=== PATIENT | male | born 1950 | race Caucasian/White ===

== ENCOUNTER → 2022-08-18 09:41 | Outpatient (CLI) | payer OTHER, SELFPAY ==
[2022-08-18 20:03] LABS: Add Manual Diff / Slide Review NO; Basophils Absolute Auto 0 /uL (0-100); Basophils Percent Auto 0.6 % (0-2); Eosinophils Absolute Auto 200 /uL (0-450); Eosinophils Percent Auto 4.5 % (2-4); Hematocrit 46.9 % (41-53); Hemoglobin 15.7 g/dL (13.5-17.5); Lymphocytes Absolute Auto 1200 /uL (1100-4500); Lymphocytes Percent Auto 27.7 % (25-40); Mean Corpuscular HGB Conc 33.5 % (30-36); Mean Corpuscular Hemoglobin 29.5 PG (26-34); Monocytes Absolute Auto 300 /uL (0-900); Neutrophils Absolute Auto 2600 /uL (1500-7000); Neutrophils Percent Auto 60.2 % (50-75); Platelet Count 176 X10^3/uL (150-400); Red Blood Cell Count 5.33 X10^6/uL (4.5-5.9); Red Cell Distribution Width 14.1 % (11.6-14.8); White Blood Cell Count 4.4 X10^3/uL (4.5-11.0)
[2022-08-18 20:10] LABS: BUN Creatinine Ratio 23.5 (6-22); Blood Urea Nitrogen 20 mg/dL (9-20); Carbon Dioxide 28 mmol/L (22-32); Chloride 104 mmol/L (98-107); Cholesterol 204 mg/dL (140-199); Estimated Glomerular Filt Rate > 60 mL/min (>60); Glucose 100 mg/dL (80-110); HDL Cholesterol 46 mg/dL (40-60); HEMOLYSIS < 15 (0-50); LDL Cholesterol Calculated 140 mg/dL (<100); Potassium 4.5 mmol/L (3.4-5.1); Sodium 137 mmol/L (137-145); Triglycerides 92 mg/dL (35-150)
[2022-08-18 20:38] LABS: Prostate Specific Antigen Scrn 2.14 ng/mL (0.1-4.0)
[2022-08-19 22:10] LABS: x Labcorp Estim. Avg Glu (eAG) 126 mg/dL (.)
[2022-08-20 08:13] LABS: Varicella IgG Antibody 362 index (Immune >165)
== END ==
PROVIDERS: PCP Family Medicine; Visit Provider Family Medicine
DX: E78.2 Mixed hyperlipidemia (principal); Z13.1 Encounter for screening for diabetes mellitus; Z13.220 Encounter for screening for lipoid disorders; Z12.5 Encounter for screening for malignant neoplasm of prostate; N40.0 Benign prostatic hyperplasia without lower urinary tract symptoms; Z13.6 Encounter for screening for cardiovascular disorders; D68.51 Activated protein C resistance; B01.9 Varicella without complication
CPT/HCPCS: 80048; 80061; 83036; 85025; 86787; G0103

== ENCOUNTER → 2023-11-30 08:10 | Outpatient (CLI) | payer OTHER, SELFPAY ==
[2023-11-30 20:29] LABS: Collection Time Urine 24 Hours; Creatinine 24 Hour Urine 1643 mg/day (1000-2000); Creatinine Urine Random 96.66 mg/dL; Total Volume Urine 1700 mL
== END ==
PROVIDERS: PCP Family Medicine; Visit Provider Student in an Organized Health Care Education/Training Program
DX: R39.9 Unspecified symptoms and signs involving the genitourinary system (principal); N20.0 Calculus of kidney
CPT/HCPCS: 82570; 84560